=== PATIENT | male | born 1990 | race Two or more races ===

== ENCOUNTER 2022-02-22 23:00 | Emergency (ER) | payer OTHER ==
[~2022-02-22] VITALS: Ht 167.6 cm; Wt 72.6 kg
[2022-02-22 23:08] VITALS: BP 134/71
--- NOTE | 2022-02-22 23:19 | NUR ---
covid swab sent to lab.
== END 2022-02-23 00:56 | disposition home or self-care (01) ==
LOC: ER 23:09
DX: Z20.822 Contact with and (suspected) exposure to COVID-19 (principal)
CPT/HCPCS: 99283; 87426; 82962; C9803